=== PATIENT | female | born 1990 | race Caucasian/White ===

== ENCOUNTER 2016-11-06 18:38 | Emergency (ER) | payer OTHER ==
[2016-11-06] MEDS ORDERED: PROMETHAZINE 25 MG/1 ML VIAL IM STA (20:51)
[2016-11-06] MEDS ORDERED: HYDROmorphone 1 MG/ML SYRINGE IM STA (20:51)
[2016-11-06] MEDS ORDERED: ONDANSETRON ODT 4 MG TABLET TL STA (20:53)
[2016-11-06] MEDS ORDERED: oxyCODONE/ACET 5/325 Prepack 4 PO STA (20:53)
[2016-11-06] MEDS ORDERED: ONDANSETRON ODT 4 MG TABLET ONE (20:54)
[2016-11-06] MEDS ORDERED: PROMETHAZINE 25 MG/1 ML VIAL ONE (20:54)
[2016-11-06] MEDS ORDERED: HYDROmorphone 1 MG/ML SYRINGE ONE (20:54)
[2016-11-06] MEDS ORDERED: oxyCODONE/ACET 5/325 Prepack 4 PO ONE (21:01)
== END 2016-11-06 21:33 | disposition home or self-care (01) ==
DX: R51 Headache (principal)
CPT/HCPCS: 96372; 99283; J1170; Q0162